=== PATIENT | male | born 1990 | race Caucasian/White ===

== ENCOUNTER 2017-10-21 10:14 | Inpatient (IN) | payer BC, OTHER ==
[~2017-10-21] VITALS: Ht 177.8 cm; Wt 59.0 kg
[2017-10-21] MEDS ORDERED: [UNRECOGNIZED DRUG - CODE] PO (11:55)
[2017-10-21] MEDS ORDERED: PRED20TA PO (11:56)
[2017-10-21] MEDS ORDERED: ALBU18HF2 INH (11:57)
[2017-10-21] MEDS ORDERED: IPRA4AER IH (11:58)
[2017-10-21] MEDS ORDERED: MONT10TA25 PO (11:59)
[2017-10-21 12:00] VITALS: BP 121/84
[2017-10-21] MEDS ORDERED: AZIT250T PO (12:00)
[2017-10-21] MEDS ORDERED: IBUPROFEN 600 MG TABLET PO PRN (12:30)
[2017-10-21] MEDS ORDERED: MAGNESIUM HYDROXIDE 30 ML LIQUID UDC PO PRN (12:30)
[2017-10-21] MEDS ORDERED: MAG HYDROX/AL HYDROX/SIMETH 30 ML LIQUID UDC PO PRN (12:30)
[2017-10-21] MEDS ORDERED: MIRALAX 17 GM POWD.PACK PO PRN (12:30)
[2017-10-21] MEDS ORDERED: CLONIDINE HCL 0.1 MG TABLET PO PRN (12:30)
[2017-10-21] MEDS ORDERED: NICOTINE 14 MG/24HR PATCH TD PRN (12:30)
[2017-10-21] MEDS ORDERED: HYDROXYZINE PAMOATE 25 MG CAPSULE PO PRN (12:30)
[2017-10-21] MEDS ORDERED: BUPRENORPHINE HCL 2 MG TAB.SUBL SL PRN (12:30)
[2017-10-21] MEDS ORDERED: ONDANSETRON 4 MG/2 ML VIAL IM PRN (12:30)
[2017-10-21] MEDS ORDERED: ACETAMINOPHEN 325 MG TABLET PO PRN (12:30)
[2017-10-21] MEDS ORDERED: ONDANSETRON ODT 4 MG TAB.RAPDIS SL PRN (12:30)
[2017-10-21] MEDS ORDERED: NICOTINE POLACRILEX 4 MG GUM-PK OF TEN BC PRN (12:30)
[2017-10-21] MEDS ORDERED: LOPERAMIDE HCL 2 MG CAPSULE PO PRN ×2 (12:30)
[2017-10-21 13:27] LABS: ETHANOL < 3 MG/DL (0-0)
[2017-10-21 13:29] LABS: ALANINE AMINOTRANSFERASE 27 U/L (16-63); ALKALINE PHOSPHATASE 64 U/L (50-136); ASPARTATE AMINOTRANSFERASE 18 U/L (15-37); BILIRUBIN,TOTAL 0.2 mg/dL (0.2-1.0); CARBON DIOXIDE 33 mmol/L (21-32); CHLORIDE 98 mmol/L (98-107); CREATININE 0.8 mg/dL (0.6-1.3); GLUCOSE 70 mg/dL (74-106); MAGNESIUM 2.2 mg/dL (1.8-2.4); UREA NITROGEN, BLOOD 12 mg/dL (7-18)
[2017-10-21 13:36] LABS: BASOPHILS # (AUTO) 0.1 K/uL (0.0-8.0); BASOPHILS % (AUTO) 1.1 % (0.0-2.0); EOSINOPHILS # (AUTO) 2.3 K/uL (0.0-0.7); EOSINOPHILS % (AUTO) 17.4 % (0.0-7.0); HEMATOCRIT 46.7 % (40-50); HEMOGLOBIN 15.3 G/DL (14.0-18.0); LYMPHOCYTES # (AUTO) 3.7 K/UL (0.8-4.8); LYMPHOCYTES % (AUTO) 27.8 % (20.5-51.5); MEAN CORPUSCULAR HEMOGLOBIN 28.3 UUG (27.0-31.0); MEAN CORPUSCULAR HGB CONC 33 g/dL (32.0-37.0); MEAN CORPUSCULAR VOLUME 86.2 FL (82.0-92.0); MONOCYTES # (AUTO) 0.8 K/UL (0.1-1.30); MONOCYTES % (AUTO) 6.1 % (0.0-11.0); NEUTROPHILS # (AUTO) 6.4 K/UL (1.8-8.9); NEUTROPHILS % (AUTO) 47.6 % (38.5-71.5); PLATELET COUNT (AUTO) 288 K/UL (150-450); RED BLOOD CELL COUNT(AUTO) 5.41 MIL/UL (4.7-6.1); WHITE BLOOD COUNT (AUTO) 13.3 K/UL (4.0-11.2)
[2017-10-21 13:50] LABS: *AMPHETAMINE, URINE NEGATIVE (NEGATIVE); *BARBITURATE, URINE NEGATIVE (NEGATIVE); *CANNABINOID, URINE NEGATIVE (NEGATIVE); *COCCAINE, URINE NEGATIVE (NEGATIVE); *OPIATE, URINE POSITIVE (NEGATIVE); *PHENCYCLIDINE SCREEN,URINE NEGATIVE (NEGATIVE)
[2017-10-21] MEDS ORDERED: LORAZEPAM 1 MG TABLET PO PRN (14:45)
[2017-10-21 16:00] VITALS: BP 115/78
[2017-10-21] MEDS: METHOCARBAMOL 750 MG TABLET PO PRN (16:50)
[2017-10-21 20:00] VITALS: BP 111/60
[2017-10-21] MEDS ORDERED: LORAZEPAM 1 MG TABLET PO ONE (21:00)
[2017-10-21] MEDS: ALBUTEROL INHALER INH PRN (21:59)
[2017-10-22] VITALS: BP 98/60
[2017-10-22 04:00] VITALS: BP 110/63
[2017-10-22 05:06] LABS: HEPATITIS B SURFACE AG Negative (Negative)
[2017-10-22 08:00] VITALS: BP 108/69
[2017-10-22] MEDS ORDERED: TUBERCULIN,PURIF.PROT.DERIV. 5 TU/0.1 ML TEST ID ONE (09:00)
[2017-10-22] MEDS: MONTELUKAST 10MG PO SCH (09:03)
[2017-10-22] MEDS: BUPRENORPHINE HCL 2 MG TAB.SUBL SL SCH ×4 (09:03→20:15)
[2017-10-22 12:00] VITALS: BP 121/86
[2017-10-22 16:00] VITALS: BP 102/77
[2017-10-22 20:00] VITALS: BP 100/60
[2017-10-22] MEDS: DICYCLOMINE HCL 20 MG TABLET PO PRN (20:14)
[2017-10-22] MEDS: diphenhydrAMINE 50 MG CAPSULE PO PRN (20:22)
[2017-10-23] VITALS: BP 112/79
[2017-10-23] MEDS: METHOCARBAMOL 750 MG TABLET PO PRN (00:09)
[2017-10-23 04:00] VITALS: BP 110/76
[2017-10-23 08:00] VITALS: BP 126/66
[2017-10-23] MEDS: MONTELUKAST 10MG PO SCH (08:08)
[2017-10-23] MEDS: BUPRENORPHINE HCL 2 MG TAB.SUBL SL SCH ×3 (08:08→20:05)
[2017-10-23 12:00] VITALS: BP 115/68
[2017-10-23] MEDS: BACLOFEN 10 MG TABLET PO SCH ×2 (14:03→20:06)
[2017-10-23 16:00] VITALS: BP 107/84
[2017-10-23 20:00] VITALS: BP 117/60
[2017-10-23] MEDS: GABAPENTIN 300 MG CAPSULE PO SCH (20:05)
[2017-10-23] MEDS: CLONIDINE HCL 0.1 MG TABLET PO SCH (20:06)
[2017-10-23] MEDS: ALBUTEROL INHALER INH PRN (20:11)
[2017-10-23] MEDS ORDERED: GABAPENTIN 300 MG CAPSULE PO SCH (21:00)
[2017-10-24] VITALS: BP 104/62
[2017-10-24 04:00] VITALS: BP 98/60
[2017-10-24 08:00] VITALS: BP 114/66
[2017-10-24] MEDS: GABAPENTIN 300 MG CAPSULE PO SCH ×3 (09:00→20:42)
[2017-10-24] MEDS ORDERED: BUPRENORPHINE HCL 2 MG TAB.SUBL SL SCH (09:00)
[2017-10-24] MEDS: BACLOFEN 10 MG TABLET PO SCH ×2 (09:00→14:17)
[2017-10-24] MEDS: CLONIDINE HCL 0.1 MG TABLET PO SCH ×2 (09:01→20:41)
[2017-10-24] MEDS: MONTELUKAST 10MG PO SCH (09:05)
[2017-10-24 12:00] VITALS: BP 116/63
[2017-10-24] MEDS: BUPRENORPHINE HCL 2 MG TAB.SUBL SL SCH ×2 (14:18→20:42)
[2017-10-24 16:00] VITALS: BP 112/65
[2017-10-24 20:00] VITALS: BP 127/94
[2017-10-24] MEDS: BACLOFEN 20 MG TABLET PO SCH (20:41)
[2017-10-24] MEDS: DICYCLOMINE HCL 20 MG TABLET PO PRN (20:41)
[2017-10-24] MEDS: ALBUTEROL INHALER INH PRN (20:48)
[2017-10-25] VITALS: BP 97/47
[2017-10-25 04:00] VITALS: BP 84/50
[2017-10-25 08:00] VITALS: BP 104/66
[2017-10-25] MEDS: GABAPENTIN 300 MG CAPSULE PO SCH ×3 (08:40→20:45)
[2017-10-25] MEDS: BACLOFEN 20 MG TABLET PO SCH ×3 (08:40→20:45)
[2017-10-25] MEDS: CLONIDINE HCL 0.1 MG TABLET PO SCH ×2 (08:40→20:48)
[2017-10-25] MEDS: BUPRENORPHINE HCL 2 MG TAB.SUBL SL SCH ×3 (08:40→20:45)
[2017-10-25] MEDS: MONTELUKAST 10MG PO SCH (08:46)
[2017-10-25 12:00] VITALS: BP 109/64
[2017-10-25 16:00] VITALS: BP 105/58
[2017-10-25 20:00] VITALS: BP 107/57
[2017-10-25] MEDS: ALBUTEROL INHALER INH PRN (20:48)
[2017-10-26] VITALS: BP 98/56
[2017-10-26 04:00] VITALS: BP 102/61
[2017-10-26 08:00] VITALS: BP 98/63
[2017-10-26] MEDS: MONTELUKAST 10MG PO SCH (08:54)
[2017-10-26] MEDS: GABAPENTIN 300 MG CAPSULE PO SCH ×3 (08:54→21:25)
[2017-10-26] MEDS: BACLOFEN 20 MG TABLET PO SCH ×3 (08:54→21:25)
[2017-10-26] MEDS: CLONIDINE HCL 0.1 MG TABLET PO SCH ×2 (08:55→21:00)
[2017-10-26] MEDS ORDERED: BUPRENORPHINE HCL 2 MG TAB.SUBL SL SCH (09:00)
[2017-10-26 12:00] VITALS: BP 110/88
[2017-10-26 16:00] VITALS: BP 108/67
[2017-10-26 20:00] VITALS: BP 108/64
[2017-10-26] MEDS: diphenhydrAMINE 50 MG CAPSULE PO PRN (21:25)
[2017-10-26] MEDS ORDERED: DIPH50CA37 PO (21:53)
[2017-10-26] MEDS ORDERED: HYDR-3895 PO (21:53)
[2017-10-26] MEDS ORDERED: IBUP-1955 PO (21:53)
[2017-10-26] MEDS ORDERED: GABA-534 PO ×2 (21:53)
[2017-10-26] MEDS ORDERED: DICY20TA28 PO (21:53)
[2017-10-26] MEDS ORDERED: CLON0.1T14 PO (21:53)
[2017-10-26] MEDS ORDERED: METH-406 PO (21:53)
[2017-10-27] VITALS: BP 105/76
[2017-10-27] MEDS: GABAPENTIN 300 MG CAPSULE PO SCH (08:39)
[2017-10-27] MEDS: CLONIDINE HCL 0.1 MG TABLET PO SCH (08:39)
[2017-10-27] MEDS: BACLOFEN 20 MG TABLET PO SCH (08:39)
[2017-10-27] MEDS: MONTELUKAST 10MG PO SCH (08:40)
[2017-10-27 08:57] VITALS: BP 120/70
== END 2017-10-27 09:40 | disposition other institution (70) | DRG 895 ==
LOC: SRC 10:14
PROVIDERS: ADMIT Internal Medicine; ATTEND Internal Medicine
DX: F11.23 Opioid dependence with withdrawal (principal); E87.3 Alkalosis; E86.0 Dehydration; F17.220 Nicotine dependence, chewing tobacco, uncomplicated; J45.20 Mild intermittent asthma, uncomplicated; G47.00 Insomnia, unspecified; F32.9 Major depressive disorder, single episode, unspecified; F41.9 Anxiety disorder, unspecified; D72.823 Leukemoid reaction
CPT/HCPCS: 36415; 70030-TC; 80307; 80361; 83735; 85025; 86580; 86592; 86705; 86803; 87340; 87806; G0480; Q0163